=== PATIENT | female | born 1960 | race Native Hawaiian/Other Pacific Islander ===

== ENCOUNTER 2019-08-07 08:20 | Day surgery (SDC) | payer OTHER ==
[2019-08-07 09:03] LABS: PLATELET COUNT 201 K/uL (152-353)
[2019-08-07 09:08] LABS: POTASSIUM 3.8 mmol/L (3.6-5.2)
== END 2019-08-07 10:55 | disposition home or self-care (01) ==
LOC: OR 08:20
PROVIDERS: Pain Medicine Interventional Pain Medicine
PROC: 3E0R33Z Introduction of Anti-inflammatory into Spinal Canal, Percutaneous Approach (ICD-10-PCS; principal; 2019-08-07)
PROC: B01BYZZ Fluoroscopy of Spinal Cord using Other Contrast (ICD-10-PCS; 2019-08-07)
DX: M50.123 Cervical disc disorder at C6-C7 level with radiculopathy (principal); M51.14 Intervertebral disc disorders with radiculopathy, thoracic region
CPT/HCPCS: 80053; 85027; J1020; J2001; J2250; J2704

== ENCOUNTER 2020-03-18 09:17 | Day surgery (SDC) | payer OTHER ==
[~2020-03-18] VITALS: Ht 30.5 cm; Wt 0.5 kg
[2020-03-18 10:44] LABS: PLATELET COUNT 199 K/uL (152-353)
[2020-03-18 10:47] LABS: POTASSIUM 4.1 mmol/L (3.6-5.2)
== END 2020-03-18 12:44 | disposition home or self-care (01) ==
LOC: OR 09:17
PROVIDERS: Pain Medicine Interventional Pain Medicine
PROC: 3E0R33Z Introduction of Anti-inflammatory into Spinal Canal, Percutaneous Approach (ICD-10-PCS; principal; 2020-03-18)
PROC: B01BYZZ Fluoroscopy of Spinal Cord using Other Contrast (ICD-10-PCS; 2020-03-18)
DX: M50.123 Cervical disc disorder at C6-C7 level with radiculopathy (principal)
CPT/HCPCS: 80053; 85027; J1020; J2704